=== PATIENT | male | born 1945 | race African-American/Black ===

== ENCOUNTER 2024-03-10 15:24 | Emergency (ER) | payer OTHER ==
[~2024-03-10] VITALS: Ht 177.8 cm; Wt 80.0 kg
[~2024-03-10 15:24] MED LIST: LEVO75TA7 PO; SIMV-46 PO
[2024-03-10 15:32] VITALS: TEMP 98; O2SAT 98
[2024-03-10] MEDS: KETOROLAC 30MG/ML VIAL IM ONE (17:00)
[2024-03-10] MEDS ORDERED: LIDO700A30 TP (17:15)
[2024-03-10] MEDS ORDERED: KETO10TA2 MT (17:15)
[2024-03-10 17:30] VITALS: BP 121/72; PULSE 68; RESP 14; O2SAT 98
== END 2024-03-10 17:37 | disposition home or self-care (01) ==
LOC: ER 15:24
DX: S16.1XXA Strain of muscle, fascia and tendon at neck level, initial encounter (principal); E78.00 Pure hypercholesterolemia, unspecified; E03.9 Hypothyroidism, unspecified; Z79.899 Other long term (current) drug therapy; W01.0XXA Fall on same level from slipping, tripping and stumbling without subsequent striking against object, initial encounter; Y93.89 Activity, other specified; Y92.89 Other specified places as the place of occurrence of the external cause; Y99.8 Other external cause status
CPT/HCPCS: 99285; 70450; 72170; 72125; 96372; J1885